=== PATIENT | male | born 1980 | race Caucasian/White ===

== ENCOUNTER 2017-12-26 17:07 | Emergency (ER) | payer MEDICARE, MEDICAID, OTHER ==
[~2017-12-26] VITALS: Ht 193 cm; Wt 95.0 kg
[2017-12-26 17:17] VITALS: BP 135/65
[2017-12-26] MEDS ORDERED: CLON-514 PO (17:24)
[2017-12-26] MEDS ORDERED: LITH300T3 PO (17:24)
== END 2017-12-26 17:35 | disposition home or self-care (01) ==
LOC: ER 17:09
DX: F41.9 Anxiety disorder, unspecified (principal); F31.9 Bipolar disorder, unspecified; Z76.0 Encounter for issue of repeat prescription; Z79.899 Other long term (current) drug therapy
CPT/HCPCS: 99283

== ENCOUNTER 2020-01-05 16:00 | Emergency (ER) | payer MEDICAID, MEDICARE ==
[~2020-01-05] VITALS: Ht 193 cm; Wt 87.7 kg
[~2020-01-05 16:00] MED LIST: CLON-514 PO; LITH300T3 PO
[2020-01-05 16:05] VITALS: BP 120/76
[2020-01-05] MEDS ORDERED: LIT300C PO (16:23)
[2020-01-05 16:46] LABS: BASOPHILS % (AUTO) 0.3 % (0-1); EOSINOPHILS # (AUTO) 0.1 X10'3 (0-0.9); EOSINOPHILS % (AUTO) 1.3 % (0-6); HEMATOCRIT 37.8 % (42.0-52.0); HEMOGLOBIN 12.8 g/dl (14.0-17.9); LYMPHOCYTES # (AUTO) 2.7 X10'3 (1.1-4.8); LYMPHOCYTES % (AUTO) 25.3 % (21-51); MEAN CORPUSCULAR HEMOGLOBIN 30.8 PG (27.0-31.0); MEAN CORPUSCULAR HGB CONC 33.7 g/dL (33.0-36.5); MEAN CORPUSCULAR VOLUME 91.1 FL (78-98); MEAN PLATELET VOLUME 8.7 FL (7.4-10.4); MONOCYTES # (AUTO) 0.7 X10'3 (0-0.9); MONOCYTES % (AUTO) 6.8 % (2-12); NEUTROPHILS # (AUTO) 7.2 X10'3 (1.8-7.7); NEUTROPHILS % (AUTO) 66.3 % (42-75); PLATELET COUNT 257 X10'3 (140-440); RED BLOOD COUNT 4.15 X10'6 (4.70-6.10); RED CELL DISTRIBUTION WIDTH 13.1 % (11.5-14.5); WHITE BLOOD COUNT 10.9 X10'3 (4.5-11.0)
[2020-01-05 16:54] LABS: ALANINE AMINOTRANSFERASE 41 U/L (12-78); ALBUMIN 3.5 G/DL (3.4-5.0); ALKALINE PHOSPHATASE 81 IU/L (46-116); ANION GAP 7 (8-16); ASPARTATE AMINO TRANSFERASE 25 U/L (10-37); BILIRUBIN,TOTAL 0.4 MG/DL (0.1-1.0); BLOOD UREA NITROGEN 9 MG/DL (7-18); BUN/CREATININE RATIO 11.7 (5.4-32.0); CALCIUM 8.8 MG/DL (8.5-10.1); CHLORIDE 106 MMOL/L (99-107); CREATININE 0.77 MG/DL (0.60-1.10); GLUCOSE 135 MG/DL (70-104); POTASSIUM 3.5 MMOL/L (3.5-5.1); SODIUM 143 MMOL/L (135-145); TOTAL CARBON DIOXIDE 29.8 MMOL/L (24-32); TOTAL PROTEIN 7.1 G/DL (6.4-8.2); eGFR > 90 ML/MIN
== END 2020-01-05 17:20 | disposition home or self-care (01) ==
LOC: ER 16:01
DX: F31.9 Bipolar disorder, unspecified (principal); Z76.0 Encounter for issue of repeat prescription; Z79.899 Other long term (current) drug therapy
CPT/HCPCS: 36415; 80053; 80178; 85025; 99283

== ENCOUNTER 2020-03-18 12:12 | Emergency (ER) | payer MEDICARE ==
[~2020-03-18] VITALS: Ht 193 cm; Wt 89.0 kg
[~2020-03-18 12:12] MED LIST changes: +LIT300C PO
[2020-03-18 12:15] VITALS: BP 136/85
== END 2020-03-18 13:30 | disposition left against medical advice (07) ==
LOC: ER 12:13
DX: Z76.0 Encounter for issue of repeat prescription (principal); Z53.21 Procedure and treatment not carried out due to patient leaving prior to being seen by health care provider

== ENCOUNTER 2025-05-28 19:13 | Emergency (ER) | payer MEDICARE, MEDICAID ==
[~2025-05-28] VITALS: Ht 193 cm; Wt 80.0 kg
[~2025-05-28 19:13] MED LIST changes: -CLON-514 PO; -LIT300C PO; -LITH300T3 PO; +NO HOME MEDS
[2025-05-28 19:28] VITALS: BP 145/80; PULSE 83; RESP 18; O2SAT 98
--- NOTE | 2025-05-28 22:18 | Physician Documentation ---
History of Present Illness ~ Chief Complaint: Jaw Pain Stated Complaint: LOWER JAW PAIN Time Seen by MD: 19:36 Primary Medical Doctor: [facility] HPI Patient is a pleasant 45-year-old male that presents to emergency department for evaluation of tooth pain and possible tooth abscess. Patient reports he has fractured teeth throughout his oral cavity. Patient reports that he had a tooth break several weeks ago since that time has he has developed pain and swelling in the gums adjacent to the broken tooth. Patient denies fever chills nausea vomiting but reports significant pain with area of edema and swelling at the base of the associated tooth. No other symptoms reported at this time. Tetanus Within 5 Years: Yes Medication Reconciliation Allergies: Coded Allergies: No Known Allergies (Unverified , 11/30/22) Miscellaneous Medications Home Med List (No Home Medications), (Reported) Past Medical History Past Medical History: Bipolar Past Surgical History: no surgical history Patient History: FH: colon cancer GRANDFATHER OR GRANDMOTHER FH: liver cancer GRANDFATHER OR GRANDMOTHER Mitral valve prolapse FAMILY/OTHER Drug Use: methamphetamine Lives In: Home Review of Systems ROS As stated above in the HPI, otherwise all systems are reviewed and negative. Physical Exam Vital Signs: Temperature: 98.3, Heart Rate: 83, Respiratory Rate: 18, BP: 145/80, Pulse Oximetry: 98, Weight: 80.000 Physical Exam VITALS: Reviewed and as above. GENERAL: Alert, no apparent distress. HEENT: Normocephalic, atraumatic, PERRL, EOMI, dry mucosa, no erythema, area of swelling along the gumline with the associated tooth noted, lymphadenopathy noted on right submental submandibular lymph nodes. RESPIRATORY: Lungs clear, normal breath sounds, no respiratory distress. CHEST: No accessory muscle use, no retractions CV: Regular rate, rhythm, no edema, no murmur, No: JVD GI: Soft, non-tender, bowels sounds present, no rebound, guarding, or rigidity BACK: No CVA tenderness, or swelling MUSCULOSKELETAL No deformities, no edema SKIN: Warm and dry, no rash NEURO: Oriented x4, No motor or sensory deficit PSYCH: Normal mood and affect, no agitation Progress Results/Orders Results/Orders Vital Signs 05/28/25 19:28 Temp 98.3 Pulse 83 Resp 18 B/P (MAP) 145/80 Pulse Ox 98 Medical Decision Making Additional information obtaine: other Findings 45-year-old male presented to the ED with several weeks of tooth pain, fractured teeth, and localized gingival swelling adjacent to a broken tooth. He reports significant pain and edema at the base of the affected tooth, but denies fever, chills, nausea, or vomiting. No evidence of systemic involvement (no fever, malaise, or lymphadenopathy). Exam reveals fractured teeth and localized gingival swelling without fluctuance or purulent drainage. Assessment: Likely localized acute apical abscess associated with fractured tooth. No signs of systemic infection or deep space involvement. Patient is immunocompetent. Medical Decision-Making: According to the [employer] guidelines , first-line management for localized dental abscess is definitive dental intervention (e.g., incision and drainage, root canal, or extraction). When immediate dental care is not available, antibiotics may be prescribed for localized abscess with swelling, especially if pain is significant and there is risk of progression.Amoxicillin/clavulanate (Augmentin) is an appropriate choice due to its efficacy against oral pathogens and favorable side effect profile. The selected regimen is Augmentin 875 mg PO BID for 10 days. Disposition: Patient is stable for discharge. He will follow up with his primary care provider and dentist for definitive dental management. He is instructed to return to the ED for worsening symptoms (fever, increased swelling, difficulty swallowing, or airway compromise). Plan: Augmentin 875 mg PO BID x 10 days Analgesia as needed (NSAIDs/acetaminophen) Dental and PCP follow-up Return precautions for systemic symptoms or progression Rationale: Antibiotics are indicated in this setting due to inability to obtain immediate dental intervention and presence of localized swelling, consistent with guideline recommendations.The chosen regimen covers common oral pathogens and is supported by susceptibility data. Patient education and close follow-up are essential to monitor for complications. Differential Dx:Considerations: Include: Abrasion, Contusion, Cerebral contusion, Cervical spine injury, Closed head injury, Encephalopathy, Foreign body, Fracture, facial, Intoxication-alcohol, Intoxication-other drug, Laceration, Other Departure Disposition: 01 HOME / SELF CARE / HOMELESS Impression: Primary Impression: Dental abscess Condition: Stable Discharge Instructions: Dental Abscess, Dental Caries, Adult, [id number] Additional Instructions: You are being treated for a dental infection with Augmentin (amoxicillin/clavulanate) 875 mg. Please follow these instructions carefully: Medication Instructions: Take one Augmentin 875 mg tablet by mouth every 12 hours (twice daily) for 10 days. Take each dose at the start of a meal or snack to help prevent stomach upset. Finish the entire course, even if you start to feel better before it is done. Do not skip doses. Possible Side Effects: Common side effects include mild diarrhea, nausea, or rash. If you develop severe diarrhea (watery, bloody stools), a skin rash that gets worse, trouble breathing, or swelling of your face or throat, stop the medication and seek medical attention right away. Allergic Reactions: Augmentin contains a penicillin-type antibiotic. If you have ever had an allergic reaction to penicillin or similar antibiotics, let your doctor know immediately. Pain Management: You may use [id number] pain relievers such as ibuprofen (940400 mg) and acetaminophen (1000 mg) together for dental pain, unless you have been told not to use these medicines. Follow-Up: Schedule a follow-up visit with your dentist and primary care provider as soon as possible for definitive dental treatment. If your symptoms do not improve after 3 days, or if you feel worse, contact your dentist or doctor. When to Seek Help: Return to the emergency department or call your doctor if you develop: Fever, chills, or feeling very unwell Increased swelling, redness, or pus in your mouth Trouble swallowing, breathing, or opening your mouth Severe or persistent diarrhea (lasting more than 23 days) Other Instructions: Store Augmentin tablets at room temperature. If you are given a liquid form, keep it refrigerated and shake well before use. Remember: Antibiotics are only for bacterial infections. Do not share your medication with others. If you have any questions or concerns, contact your healthcare provider. Referrals: NO PRIMARY CARE PROVIDER (PCP) Prescriptions Amox Tr/Potassium Clavulanate (Augmentin 875-125 Tablet) 1 Each Tablet 1 TAB PO Q12H for 10 Days, #20 TAB Prov: LUDMILA HERNANDEZ 05/28/25 Education Educated: Patient Educated regarding: diagnosis, treatment, need for follow up Signature Scribe Signature: A Attestation: Scribed for Ludmila Hernandez by ANNETTE Lindsey . 05/28/25 22:22 LUDMILA HERNANDEZ May 28, 2025 22:18
[2025-05-28] MEDS ORDERED: AMOX-117 PO (22:20)
[2025-05-28 22:25] VITALS: TEMP 98.3
[2025-05-28] MEDS: amox tr/potassium clavulanate 875/125mg TAB PO ONE (22:39)
== END 2025-05-28 22:40 | disposition home or self-care (01) ==
LOC: ER 19:14
DX: K04.7 Periapical abscess without sinus (principal); F31.9 Bipolar disorder, unspecified; F15.90 Other stimulant use, unspecified, uncomplicated
CPT/HCPCS: 99283